=== PATIENT | female | born 1975 | race Native Hawaiian/Other Pacific Islander ===

== ENCOUNTER 2016-10-22 07:24 | Inpatient (IN) | payer OTHER ==
[~2016-10-22] VITALS: Ht 162.6 cm; Wt 67.1 kg
[2016-10-22] VITALS (26 sets, daily range): BP systolic 100–122; BP diastolic 63–77; PULSE 54–70; RESP 17–20; TEMP 97.8–98.2
[~2016-10-22 07:24] MED LIST: PERC5TAB12 PO
--- NOTE | 2016-10-22 07:42 | MH ---
cc: JOHNNA DUONG M.D. DATE OF ADMISSION: 10/22/2016 DATE OF : 1975 CHIEF COMPLAINT Patient brought in for elective post stage induction of labor. PAST MEDICAL HISTORY: The patient's past medical history; The patient is a 41-year-old female, last menstrual period was January 09, 2016. Her estimated date confinement is October 15, 2016 confirmed by ultrasound in the first trimester. The patient is a 8 para 5 with a history of a spontaneous miscarriage in 2012 molar in 2006. The patient has had an uncomplicated course and she has elected for induction of labor post dates. PAST MEDICAL HISTORY: The patient's past medical history. The patient denies any dysenteric or chronic disease states. PAST SURGICAL HISTORY: She has no prior surgical history. ALLERGIES She has no known drug allergies. MEDICATIONS: Current medications include vitamins. She was also started on Macrobid for suspected urinary tract infection 1 week ago. Treatment should be complete by the day of admission. OBSTETRICAL HISTORY: Patient with history of advanced maternal age with negative cell free DNA testing. The patient's blood type is O negative antibody screen is negative. The patient's group B strep status is negative. The patient has had five successful vaginal deliveries, no complications incurred with any. She had a molar in 2006 which resolved, and she had a spontaneous miscarriage in 2012. SOCIAL HISTORY: She is a stay at home mom and she denies use of alcohol, tobacco or illicit substances. FAMILY HISTORY: The patient's family history noncontributory. PHYSICAL EXAMINATION IN GENERAL: The patient is well-appearing well-nourished female in no distress. VITAL SIGNS: Stable. Blood pressure is 100/60. She weighs 147 pounds. She is 5'4". The patient's heart tones were documented in the 140s. HEAD, EARS, EYES, NOSE, AND THROAT: The patient's HEENT shows no adenopathy, no thyromegaly. NECK; the neck is supple. full range of motion. LUNGS: The lungs were clear in all [place]. CARDIOVASCULAR SYSTEM: Regular rate and rhythm, no murmur or rub or gallop. ABDOMEN: The abdomen is gravid, full-term. PELVIC: Pelvic exam reveals a vertex presentation -2 station, 60% effaced with 1 cm mid position, soft, intact membranes. EXTREMITIES: Extremities were symmetrical full range of motion. There is no cyanosis, clubbing or edema. NEUROLOGIC: The neurologic exam is grossly intact. ASSESSMENT: The patient is a 41-year-old grand multiparous. 8, para 5 for induction of labor at 41 weeks gestation, history of recent urinary tract infection treated with Macrobid the patient's group B strep status is negative. The patient's blood type is O negative. Antibody screen negative. PLAN: The patient was brought in for Pitocin augmentation and artificial rupture of membranes. MD FLORENTINO De/say /12:14 PM /7:33 AM
[2016-10-22 08:42] LABS: AUTOMATED NEUTROPHIL # 6.3 TH/MM3 (1.8-7.7); BASOPHIL % 0.5 % (0.0-2.0); EOSINOPHIL # 0.1 TH/MM3 (0-0.4); EOSINOPHIL % 0.8 % (0.0-4.0); LYMPH % 18.3 % (9.0-44.0); LYMPHOCYTE # 1.5 TH/MM3 (1.0-4.8); MEAN CELL VOLUME 83.3 FL (80.0-100.0); MEAN CORPUSCULAR HEMOGLOBIN 28.3 PG (27.0-34.0); MEAN CORPUSCULAR HGB CONC 33.9 % (32.0-36.0); MONO % 5.5 % (0.0-8.0); NEUT % 74.9 % (16.0-70.0); PLATELET COUNT 220 TH/MM3 (150-450); RED BLOOD COUNT 3.61 MIL/MM3 (4.00-5.30); WHITE BLOOD COUNT 8.5 TH/MM3 (4.0-11.0)
[2016-10-22] MEDS ORDERED: OXYTOCIN 30 UNITS-500ML PREMIX 500 ML ONE (08:43)
[2016-10-22 08:45] LABS: HEMO FLAGS AUTO DIFF
[2016-10-22 09:04] LABS: BACTERIA, URINE MANY /hpf; BLOOD, URINE SMALL (NEG); COMMENT (UR) CULTURE INDICATED; CULTURE IF INDICATED CULTURE INDICATED; GLUCOSE,URINE NEG (NEG); KETONE, URINE NEG (NEG); MUCUS URINE FEW /lpf (OCC); NITRITE,URINE NEG (NEG); SQUAMOUS EPITHELIAL CELL URINE 13 /hpf (0-5); TRANSITIONAL EPI CELLS, URINE <1 /hpf; URINE COLOR YELLOW (YELLW/STRAW)
[2016-10-22 09:22] LABS: SCAN/DIFF AUTO DIFF CONFIRMED
[2016-10-22] MEDS ORDERED: OXYTOCIN 30 UNITS/NS 500ML PREMIX IV SCH (09:30)
[2016-10-22] MEDS ORDERED: SODIUM CHLOR 0.9% 1000 ML INJ 1,000 ML OTHER PRN (10:40)
[2016-10-22] MEDS ORDERED: SODIUM CHLORIDE 0.9% FLUSH 10 ML FLUSH IV FLUSH PRN (10:45)
[2016-10-22] MEDS ORDERED: SODIUM CHLORIDE 0.9% FLUSH 10 ML FLUSH IV FLUSH SCH (10:45)
--- NOTE | 2016-10-22 10:45 | PD.LABORPN ---
Subjective Subjective No c/o pain,bleeding Objective Vital Signs Vital Signs Date Time Temp Pulse Resp B/P Pulse Ox O2 Delivery O2 Flow Rate FiO2 10/22/16 10:27 68 18 104/65 10/22/16 10:00 18 10/22/16 09:59 66 105/70 10/22/16 09:35 70 18 105/72 10/22/16 09:13 18 10/22/16 09:12 67 100/63 Objective Pelvic Exam: Cervix: posterior Dilatation: 0 Effacement: 50 Station: -3 Presentation: ? vertex Membranes: [intact Uterine Contractions: none FHT's: Category: 1 Baseline: [-] Reactive: [-] Variability: [-] Decels: none Assessment/Plan Assessment and Plan IOL, will start with cytotec. order sonogram to confirm position Jaron Ontiveros MD Oct 22, 2016 10:45
[2016-10-22] MEDS ORDERED: NS 500 ML BOLUS IV PRN (11:00)
[2016-10-22] MEDS ORDERED: LACTATED RINGER'S 1000 ML BOLUS IV PRN (11:00)
[2016-10-22] MEDS ORDERED: OXYTOCIN 30 UNITS 500ML PREMIX IV ONE (11:00)
[2016-10-22] MEDS ORDERED: ONDANSETRON HCL 4 MG/2 ML VIAL IV PRN (11:00)
[2016-10-22] MEDS ORDERED: LIDOCAINE HCL 1% 50 ML VIAL I-DERMAL PRN (11:00)
[2016-10-22] MEDS ORDERED: NS 1000 ML IV PRN (11:00)
[2016-10-22] MEDS ORDERED: CITRIC ACID-SODIUM CITRATE LIQ 30 ML UDC PO SCH (11:00)
[2016-10-22] MEDS ORDERED: MINERAL OIL 10 ML VIAL TOPICAL PRN (11:00)
[2016-10-22] MEDS ORDERED: LIDOCAINE HCL 1% 50 ML VIAL INFIL PRN (11:00)
[2016-10-22] MEDS: LACTATED RINGER'S 1000 ML IV SCH ×2 (11:52→19:00)
[2016-10-22] MEDS ORDERED: MISOPROSTOL 25 MCG SUPP VAGINAL PRN (14:45)
[2016-10-22] MEDS ORDERED: DINOPROSTONE 10 MG VAG INSERT VAGINAL ONE (19:00)
[2016-10-23] VITALS (54 sets, daily range): BP systolic 75–143; BP diastolic 35–99; PULSE 56–172; RESP 18; TEMP 97.9–98.5
[2016-10-23] MEDS ORDERED: fentaNYL 2MCG-BUPIV 0.125% INJ 100 ML ONE ×2 (02:25→09:07)
[2016-10-23] MEDS ORDERED: ePHEDrine/NS 25 MG/5 ML SYR ONE (02:26)
[2016-10-23] MEDS ORDERED: OXYTOCIN 30 UNITS/NS 500ML PREMIX IV SCH (06:00)
--- NOTE | 2016-10-23 10:28 | PD.OB.DELI ---
Anesthesia: Epidural Episiotomy: None Vaginal Delivery: Normal Presentation: Occiput anterior Nuchal Cord: None Delayed cord clamping (45 sec): Yes Shoulder Dystocia: Nai maneuver done : Male One Minute : 8 Five Minute : 9 Placenta: Spontaneous delivery, Intact, 3 vessel cord Laceration: Vaginal laceration, 1 deg Repair: Vicryl running Estimated blood loss: <200cc Jaron Ontiveros MD Oct 23, 2016 10:28
[2016-10-23] MEDS ORDERED: ACETAMINOPHEN 325 MG TAB PO PRN (10:30)
[2016-10-23] MEDS ORDERED: BENZOCAINE 20% TOPICAL SPRAY 60 ML CAN TOPICAL PRN (10:30)
[2016-10-23] MEDS ORDERED: DOCUSATE SODIUM 50 MG/SENNA 8.6 MG TAB PO PRN (10:30)
[2016-10-23] MEDS ORDERED: OXYTOCIN 30 UNITS-500ML PREMIX 500 ML IV SCH (10:30)
[2016-10-23] MEDS ORDERED: ZOLPIDEM TARTRATE 5 MG TAB PO PRN (10:30)
[2016-10-23] MEDS ORDERED: SODIUM CHLORIDE 0.9% FLUSH 10 ML FLUSH IV FLUSH SCH (10:30)
[2016-10-23] MEDS ORDERED: SODIUM CHLORIDE 0.9% FLUSH 10 ML FLUSH IV FLUSH PRN (10:30)
[2016-10-23] MEDS ORDERED: ALUMINUM/MAGNESIUM/SIMETH 30 ML CUP PO PRN (10:30)
[2016-10-23] MEDS ORDERED: ONDANSETRON ODT 4 MG TAB PO PRN (10:30)
[2016-10-23] MEDS ORDERED: WITCH HAZEL 50%/GLYCERIN 12.5% 40 PAD JAR TOPICAL PRN (10:30)
[2016-10-23] MEDS ORDERED: OXYTOCIN 10 UNIT/ML AMP XX PRN (10:30)
[2016-10-23] MEDS: IBUPROFEN 600 MG TAB PO PRN ×2 (11:10→20:09)
[2016-10-23] MEDS ORDERED: MEASLES, MUMPS, RUBELLA VACCINE 0.5 ML VIAL SQ ONE (16:00)
[2016-10-23] MEDS ORDERED: DIPHTH/TETANUS/ACEL PERTUSSIS (BOOSTER) 0.5 ML VIAL/PFS IM ONE (16:00)
[2016-10-24] MEDS: IBUPROFEN 600 MG TAB PO PRN ×2 (01:45→08:55)
--- NOTE | 2016-10-24 07:41 | HHI.OB ---
Subjective Post Day: 1 Remarks Doing well, pain is controlled baby is doing well Bleeding is normal Tolerating diet Objective Vitals/I&O Vital Signs Date Time Temp Pulse Resp B/P Pulse Ox O2 Delivery O2 Flow Rate FiO2 10/23/16 20:10 98.2 59 18 115/62 10/23/16 12:15 97.9 67 18 103/70 10/23/16 11:16 71 111/68 10/23/16 11:05 18 10/23/16 11:00 123/99 10/23/16 10:55 18 10/23/16 10:46 64 110/68 10/23/16 10:39 18 10/23/16 10:30 70 143/57 10/23/16 10:25 98.1 10/23/16 10:17 18 10/23/16 10:15 67 105/69 10/23/16 10:03 18 10/23/16 10:00 61 106/62 10/23/16 09:43 87 18 96/36 10/23/16 09:26 77 118/71 10/23/16 08:52 65 102/59 10/23/16 08:45 18 10/23/16 08:15 18 10/23/16 08:06 71 112/69 10/23/16 07:44 18 10/23/16 07:43 98.5 68 109/74 Objective Remarks GENERAL: Well-nourished, well-developed patient. CARDIOVASCULAR: Regular rate and rhythm without murmurs, gallops, or rubs. RESPIRATORY: Breath sounds equal bilaterally. No accessory muscle use. ABDOMEN/GI: Abdomen soft, non-tender. Fundus: Firm, non-tender at umbilicus. GENITOURINARY: Light to moderate bleeding. EXTREMITIES: No cyanosis or edema, non-tender, without signs of DVT. Medications and IVs Current Medications Medications (Trade) Dose Ordered Sig/Cait Route Start Time Stop Time Status Last Admin (NS Flush) 2 ml BID IV FLUSH 10/23/16 10:30 10/23/16 11:03 (NS Flush) 2 ml UNSCH PRN IV FLUSH 10/23/16 10:30 (Tylenol) 650 mg Q4H PRN PO 10/23/16 10:30 (Motrin) 600 mg Q6H PRN PO 10/23/16 10:30 10/24/16 01:45 (Americaine 20% Top Spr) 1 spray Q4H PRN TOPICAL 10/23/16 10:30 (Tucks Pads) 1 applic QID PRN TOPICAL 10/23/16 10:30 (Skylar-Colace) 2 tab Q12H PRN PO 10/23/16 10:30 (Ambien) 5 mg HS PRN PO 10/23/16 10:30 (Mag-Al Plus Susp Liq) 15 ml Q8H PRN PO 10/23/16 10:30 (Zofran Odt) 4 mg Q6H PRN PO 10/23/16 10:30 Assessment/Plan Assessment and Plan PPD #1 Doing well Routine care Gricel Wesley MD Oct 24, 2016 07:41
--- NOTE | 2016-10-24 08:08 | HHI.DCPOC ---
Discharge Care Plan Diagnosis: (1) (normal spontaneous vaginal delivery) Your Health Problems Are: Vaginal delivery Report Symptoms to Your Doctor -Temperature above 100.5 degrees -Redness, of incision or excessive or foul smelling drainage -Unusual pain or calf pain -Increased vaginal bleeding -Painful or difficulty urinating -Feelings of extreme sadness or anxiety after 2 weeks Goals to Promote Your Health * To prevent worsening of your condition and complications * To maintain your health at the optimal level Directions to Meet Your Goals Take your medications as prescribed Follow your dietary instruction Follow activity as directed Ensure plenty of rest for recovery Drink fluids for hydration Keep your appointments as scheduled Take your immunizations and boosters as scheduled If your symptoms worsen call your PCP, if no PCP go to Urgent Care Center or Emergency Room Smoking is Dangerous to Your Health. Avoid second hand smoke Call the 24-hour crisis hotline for domestic abuse at Sherri Cervantes MD Oct 24, 2016 08:08
[2016-10-24] MEDS ORDERED: LIDOCAINE HCL 1% PF 30 ML VIAL ONE (08:26)
[2016-10-24 08:30] VITALS: BP 100/69; PULSE 61; RESP 16; TEMP 97.7
== END 2016-10-24 15:47 | disposition home or self-care (01) | DRG 775 ==
LOC: H2EB 07:24 → H1EA 10-23 11:42
PROVIDERS: ADMIT Obstetrics & Gynecology; ATTEND Obstetrics & Gynecology
PROC: 3E0P7GC Introduction of Other Therapeutic Substance into Female Reproductive, Via Natural or Artificial Opening (ICD-10-PCS; 2016-10-22)
PROC: 10E0XZZ Delivery of Products of Conception, External Approach (ICD-10-PCS; principal; 2016-10-23)
PROC: 0HQ9XZZ Repair Perineum Skin, External Approach (ICD-10-PCS; 2016-10-23)
DX: O48.0 Post-term pregnancy (principal); O26.893 Other specified pregnancy related conditions, third trimester; O66.0 Obstructed labor due to shoulder dystocia; O70.0 First degree perineal laceration during delivery; Z3A.41 41 weeks gestation of pregnancy; Z37.0 Single live birth
CPT/HCPCS: 59025; 76815; 81001; 85025; 85461; 86850; 86900; 86901; 87077; 87086; 87186; 90384; J0696; J2590; J2790; J7120